=== PATIENT | male | born 1995 | race Caucasian/White ===

== ENCOUNTER 2018-02-26 22:15 | Emergency (ER) | payer SELFPAY ==
[2018-02-26 22:16] VITALS: BP 125/75; PULSE 68; RESP 18; TEMP 36.8; O2SAT 99; BMI 22.1
--- NOTE | 2018-02-26 22:34 | ED.DCSUM_ITS ---
- ER Visit Summary Date of Service: 02/26/18 Chief Complaint: Foreign body sensation right eye History of Present Illness: The patient is a 23 M presenting for foreign body sensation right eye. He states he noticed this around 7 PM this evening. He tried to flush out his eye. He complains of burning sensation in his eye. Denies any visual changes. He wears glasses, does not wear contacts. He was grinding metal with safety goggles on today. Denies other complaints. Physical Examination: Vitals are stable. Patient is afebrile. Alert no acute distress. HEENT exam is right conjunctivae injected with FB visible at 3 o'clock Neck is supple. Lungs are clear and equal bilaterally. Heart is regular rate and rhythm. Skin is warm and dry. Remainder of exam is unremarkable. Emergency Department Course and Treatment: Tetracaine was instilled in right eye. Visual acuity 20/30 OD, 20/30 OS, 20/30 OU. Pain is relieved with tetracaine. Foreign body was mostly removed with cotton tip swab. Further foreign body was removed with eye brayan. There is small residual foreign body. Currently fluorescein is unavailable. He will follow-up with ophthalmology in the morning. He is given bacitracin ophthalmic ointment. Advised return ED if worsening complaints. Disposition: Discharge home Impression: Foreign body right eye This note was generated with [employer] dictation software. It may contain incorrect words, spelling, and punctuation that were not noted in review of the chart prior to signing ED Disposition - Plan for ED Patient: Chief Complaint: Eye Problem Instructions: ED Foreign Body Cornea Referrals: Vahe Salinas [Primary Care Provider] - Michael Ruiz MD [STAFF PHYSICIAN] -
[2018-02-26] MEDS: Tetracaine 0.5% Ophthalmic Bottle 1 DRP EACH EYE (22:43)
--- NOTE | 2018-02-26 22:51 | ED.DEP ---
ED Disposition - Plan for ED Patient: Chief Complaint: Eye Problem Instructions: ED Foreign Body Cornea Referrals: Vahe Salinas [Primary Care Provider] - Michael Ruiz MD [STAFF PHYSICIAN] -
--- NOTE | 2018-02-26 23:09 | NURSING ---
PT INSTRUCTED BY DOCTOR TO PUT ANTIBIOTIC EYE OINTMENT IN EYE TID
[2018-02-26 23:12] VITALS: RESP 18
== END 2018-02-26 23:13 | disposition home or self-care (01) ==
PROVIDERS: Emergency Provider Emergency Medicine; Family Provider Family Medicine; PCP Family Medicine
DX: T15.91XA Foreign body on external eye, part unspecified, right eye, initial encounter (principal); X58.XXXA Exposure to other specified factors, initial encounter; Y93.9 Activity, unspecified; Y92.9 Unspecified place or not applicable; Y99.9 Unspecified external cause status
CPT/HCPCS: 99283

== ENCOUNTER 2018-03-31 11:17 | Emergency (ER) | payer SELFPAY ==
[2018-03-31 11:18] VITALS: BP 123/69; PULSE 65; RESP 17; TEMP 37; O2SAT 99; BMI 23.2
--- NOTE | 2018-03-31 12:15 | CT_ITS ---
STUDY: CT ABDOMEN AND PELVIS WITHOUT CONTRAST REASON FOR EXAM: Male, 23 years old. Abdominal pain after eating, diarrhea RADIATION DOSAGE (If Supplied By Facility): CTDIvol = ( 6.24 ) mGy, DLP = ( 311.88 ) mGycm TECHNIQUE: Transaxial images were obtained from the dome of the diaphragm to the symphysis pubis without oral contrast, and without intravenous contrast. Sagittal and coronal images were reconstructed. Individualized dose optimization techniques were used for this CT. COMPARISON: None. FINDINGS: The visualized lung bases are unremarkable. The visualized portions of the heart are within normal limits. Normal liver. Normal gallbladder and extrahepatic biliary system. Normal spleen. Normal pancreas. Normal bilateral adrenal glands. Normal right kidney. Normal left kidney. Normal visualized stomach. Normal small intestine. Normal colon. There is non-visualization of the appendix. Normal abdominal aorta. Normal inferior vena cava. Normal retroperitoneum. Normal urinary bladder. Normal abdominal wall. Normal osseous structures. CT/Abdomen/Pelvis without Cont IMPRESSION: No evidence of acute intestinal pathology or acute obstructive uropathy. No CT evidence of acute abdominopelvic pathology. Electronically Signed: Jair Carmona MD at 12:53 EDT Tel , Service support ,
[2018-03-31] MEDS: morphine 8 MG/ML Syringe IV (12:19)
[2018-03-31] MEDS: 0.9% Normal Saline 1,000 ML 1000 ML IV (12:19)
[2018-03-31 12:21] LABS: Absolute Lymphocyte Count 1.32 X10^3/ul (0.83-4.51); Absolute Neutrophil Count 3.6 X10^3/uL (2.0-7.7); Basophil# 0.02 X10^3/uL; Basophil% 0.4 % (0-1); Eosinophil# 0.16 X10^3/uL; Eosinophils% 2.9 % (0-5); Hematocrit 41.9 % (40-54); Hemoglobin 14.6 g/dl (13.0-16.5); Lymphocyte # 1.32 X10^3/ul (4.0); Lymphocyte % 24.2 % (19-41); Mean Corp Hgb Conc 34.8 g/gl (32-36); Mean Corpuscular Hgb 29.8 pg (27.0-32.0); Mean Corpuscular Volume 85.5 fL (80-94); Mean Platelet Vol. 10.2 fl (6.2-12.0); Monocyte% 7.3 % (0-10); Neutrophil # 3.55 X10^3/uL (2.7-7.7); Platelet Count 229 K/mm3 (150-450); RBC Distribution Width CV 12.1 % (11.6-14.6); RBC Distribution Width SD 37.3 fl (35.1-43.9); White Blood Count 5.5 K/mm3 (4.4-11.0)
[2018-03-31] MEDS: Ondansetron 4 MG/2 ML Vial IV (12:21)
[2018-03-31 12:22] LABS: POSITIVE COUNT NO; POSITIVE DIFFERENTIAL NO; POSITIVE MORPHOLOGY NO
--- NOTE | 2018-03-31 12:23 | ED.DCSUM_ITS ---
- ER Visit Summary Date of Service: 03/31/18 Chief Complaint: [] Abdominal pain and diarrhea for about 2 weeks history of ulcerative colitis as a child History of Present Illness: The patient is a 23 M [] no symptoms for 2 weeks he states had copious diarrhea, no vomiting but increasing symptoms when he eats, no fever no cough no history of exposures to tainted food or sick individuals, He has history of appendectomy as a youth, he was diagnosed ulcerative colitis as a youth, he was placed on medications he improved and is not taking any medications or seen anyone for any type of GI ailment for many years. He simply complains of low crampy right and left side abdominal discomfort and copious diarrhea his symptoms persisted he came in for evaluation works with [employer] and was not exposed anything that could have made him ill Physical Examination: [] His vital signs are within normal range head neck chest unremarkable the abdomen is soft there is no specific discomfort subjectively complains of pain to the right suprapubic and left lower abdomen however the palpation reveals no rebound guarding organomegaly the backs unremarkable upper lower extremities are normal the skin is normal neurologically he is awake moving all 4 Test Results: [] Emergency Department Course and Treatment: [] Than that history screening labs IV fluids CT abdomen Since labs studies and CTs are unremarkable please see all those reports on reevaluation he is resting comforting the bed of explained all the above test results to him and his family, explained that all the above is unclear, explained that it is not clear that this is in fact from the ulcerative colitis is again etiology is unclear, I explained he requires management with primary care possible gastroneurology at this time started on bland diet Bentyl and outpatient follow-up and return for change in symptoms and he understands will follow-up Treatment Plan: [] Disposition: [] Home stable Impression: [] Abdominal pain for weeks etiology unclear history of ulcerative colitis This note was generated with [employer] dictation software. It may contain incorrect words, spelling, and punctuation that were not noted in review of the chart prior to signing ED Disposition - Plan for ED Patient: Chief Complaint: Abd Pain Referrals: Vahe Salinas [Primary Care Provider] -
[2018-03-31 12:47] LABS: AST(SGOT) 22 U/L (15-37); Alanine Aminotransfer ALT/SGPT 27 U/L (16-61); Alkaline Phosphatase 74 U/L (45-117); Anion Gap 4 (5-15); BUN 7 mg/dL (7-18); BUN/Creat Ratio 6.3 RATIO (10-20); Bilirubin, Direct 0.08 mg/dL (0.00-0.30); Calcium,Total 8.6 mg/dL (8.5-10.1); Chloride 107 mmol/L (98-107); Creatinine, Serum 1.11 mg/dL (0.70-1.30); EST Glomerular Filtration Rate 86 mL/min (>60); Est Glom Filt Rate - Afr Amer 104 mL/min (>60); Estimated Creatinine Clearance 101.73 ml/min; Globulin 3.3 g/dL (2.2-4.2); Glucose 78 mg/dL (74-106); Lipase 67 U/L (73-393); Potassium 4.1 mmol/L (3.5-5.1); Protein, Total 7.3 g/dL (6.4-8.2); Sodium Level 140 mmol/L (136-145)
[2018-03-31 12:58] LABS: Bacteria 0 SEEN /hpf (None Seen); Mucous, Urine 0 SEEN /hpf (<or=2+); Red Blood Cells-Urine 0 SEEN /hpf (0-5); Squamous Epithelial Cells - UA 0 SEEN /hpf (0-5); White Blood Cells 0 SEEN /hpf (0-5)
[2018-03-31 13:11] LABS: Color, Urine Yellow (Yellow); Glucose, Dipstick Normal (Normal); Ketone-Dipstick Negative (Negative); Leukocyte Esterase-Dipstick Negative /ul (Negative); Nitrite-Dipstick Negative (Negative); Occult Blood-Urine Negative /ul (Negative); Protein-Dipstick Negative (Negative); Specific Gravity, Urine 1.015 (1.002-1.030); Urine Bilirubin Dipstick Negative (Negative); Urine Clarity Clear (Clear); Urine Urobilinogen Normal (Normal)
--- NOTE | 2018-03-31 14:09 | ED.DEP ---
ED Disposition - Plan for ED Patient: Chief Complaint: Abd Pain Instructions: ED Abdominal Pain Unkn Cause Prescriptions: Dicyclomine HCl [Bentyl] 20 mg PO TIDAC #20 cap Referrals: Vahe Salinas [Primary Care Provider] - Cuba Banks MD [STAFF PHYSICIAN] -
== END 2018-03-31 14:31 | disposition home or self-care (01) ==
LOC: ED 12:19
PROVIDERS: Emergency Provider Emergency Medicine; Family Provider Family Medicine; PCP Family Medicine
DX: R10.9 Unspecified abdominal pain (principal); R19.7 Diarrhea, unspecified; Z87.19 Personal history of other diseases of the digestive system
CPT/HCPCS: 74176; 80048; 80076; 81001; 83690; 85025; 96361; 96374; 96375; 99284; J7030; A4216; J2405

== ENCOUNTER 2018-08-21 18:36 | Emergency (ER) | payer OTHER, SELFPAY ==
[2018-08-21 18:37] VITALS: BP 130/69; PULSE 77; RESP 16; TEMP 35.9; BMI 22.8
--- NOTE | 2018-08-21 19:02 | RAD_ITS ---
STUDY: X-RAY - LEFT RADIUS AND ULNA REASON FOR EXAM: Male, 23 years old. Trauma TECHNIQUE: 2 view(s) of the forearm. COMPARISON: None. FINDINGS: There is no demonstrated soft tissue swelling. There is a partially threaded screw coursing the medial humeral epicondyle Normal visualized radius. Normal visualized ulna. RAD/Forearm 2 Views IMPRESSION: No evidence for acute fracture or dislocation. Electronically Signed: David Geiger MD at 20:27 EST , Service support ,
--- NOTE | 2018-08-21 19:17 | ED.VISSUMM ---
- ER Visit Summary Date of Service: 08/21/18 Chief Complaint: [Left arm injury] History of Present Illness: The patient is a 23 M [presents to the emergency department complaint of injury to his left forearm. Patient states that while at work 2 days ago he was cleaning out a cylinder while holding onto the cylinder with his left arm which required significant amount of pressure. Patient states that he went home that day and had a lot of discomfort in the dorsum of his forearm. Today while at work he developed increasing pain and burning sensation with numbness to his thumb. Patient noticed that there is a swelling to the dorsum of the forearm that is very painful.] Physical Examination: [Left arm-patient has a soft tissue swelling to the dorsum of the forearm distal third that is tender to palpation. Patient has the ability to extend all digits without difficulty. He is neurovascularly intact distally. No discoloration noted to the skin. There is no erythema or warmth.] Test Results: [X-rays of the left forearm showed no fractures or dislocations] Emergency Department Course and Treatment: [Patient had an Chai wrap given] Treatment Plan: [Patient will be referred to orthopedics and given work restrictions] Disposition: [Discharged home in stable condition] Impression: [Left forearm strain] This note was generated with [employer] dictation software. It may contain incorrect words, spelling, and punctuation that were not noted in review of the chart prior to signing ED Disposition - Plan for ED Patient: Chief Complaint: Upper Extremity Injury Referrals: Vahe Salinas [Primary Care Provider] -
--- NOTE | 2018-08-21 20:34 | ED.DEP ---
ED Disposition - Plan for ED Patient: Chief Complaint: Upper Extremity Injury Instructions: ED Strain Muscle Ext Referrals: Vahe Salinas [Primary Care Provider] - Amy Ceballos DO [STAFF PHYSICIAN] - 3-5 Days
[2018-08-21 20:53] VITALS: RESP 18; O2SAT 100
== END 2018-08-21 20:55 | disposition home or self-care (01) ==
LOC: ED 19:31
PROVIDERS: Emergency Provider Emergency Medicine; Family Provider Family Medicine; PCP Family Medicine
DX: S56.912A Strain of unspecified muscles, fascia and tendons at forearm level, left arm, initial encounter (principal); R20.0 Anesthesia of skin; X50.9XXA Other and unspecified overexertion or strenuous movements or postures, initial encounter; Y93.89 Activity, other specified; Y92.89 Other specified places as the place of occurrence of the external cause; Y99.0 Civilian activity done for income or pay; F17.220 Nicotine dependence, chewing tobacco, uncomplicated
CPT/HCPCS: 73090; 99284

== ENCOUNTER → 2023-04-27 | Outpatient (CLI) | payer OTHER, SELFPAY ==
[2023-04-27 17:16] LABS: Absolute Lymphocyte Count 1.86 X10^3/uL (0.83-4.51); Absolute Neutrophil Count 4.1 X10^3/uL (2.0-7.7); Basophil# 0.04 X10^3/uL; Basophil% 0.6 % (0-1); Eosinophil# 0.24 X10^3/uL; Eosinophils% 3.6 % (0-5); Hemoglobin 14.5 g/dL (13.0-16.5); Lymphocyte # 1.86 X10^3/ul (0.83-4.51); Lymphocyte % 27.9 % (19-41); Mean Corp Hgb Conc 33.7 g/dL (32-36); Mean Corpuscular Hgb 29.5 pg (27.0-32.0); Mean Corpuscular Volume 87.4 fL (80-94); Mean Platelet Vol. 9.9 fl (6.2-12.0); Monocyte# 0.38 X10^3/uL; Monocyte% 5.7 % (0-10); NRBC Flagged by Analyzer 0 % (0-5); Neutrophil # 4.14 X10^3/uL (2.7-7.7); Neutrophil % 62.1 % (47-70); Platelet Count 259 K/mm3 (150-450); RBC Distribution Width CV 12.1 % (11.6-14.6); RET-HE 32.8 pg (30-35); Red Blood Count 4.92 M/mm3 (4.6-6.2); Reticulocyte Count 1.42 % (0.5-1.5); White Blood Count 6.7 K/mm3 (4.4-11.0)
[2023-04-27 17:32] LABS: Erythrocyte Sedimentation Rate 1 mm/hr (0-20)
[2023-04-27 18:21] LABS: ALB/GLOB Ratio 1.3 RATIO (0.9-2.4); AST(SGOT) 20 U/L (15-37); Alanine Aminotransfer ALT/SGPT 26 U/L (16-61); Albumin, Serum 4.1 g/dL (3.2-5.0); Alkaline Phosphatase 75 U/L (45-117); Amylase 56 U/L (25-115); Anion Gap 6 (5-15); BUN 16 mg/dL (7-18); BUN/Creat Ratio 16.3 RATIO (10-20); CRP < 2.90 mg/L (0.0-3.0); Calcium,Total 8.9 mg/dL (8.5-10.1); Chloride 106 mmol/L (98-107); Creatinine, Serum 0.98 mg/dL (0.70-1.30); EST Glomerular Filtration Rate 95 mL/min (>60); Est Glom Filt Rate - Afr Amer 115 mL/min (>60); Ferritin 119 ng/mL (26-388); Globulin 3.2 g/dL (2.2-4.2); Glucose 62 mg/dL (74-106); Iron 112 ug/dL (65-175); Iron Binding Capacity,Total 344 ug/dL (250-450); LDH 162 U/L (87-241); Lipase 28 U/L (13-75); Potassium 3.4 mmol/L (3.5-5.1); Protein, Total 7.3 g/dL (6.4-8.2); Sodium Level 142 mmol/L (136-145); T4 Free Direct 0.86 ng/dL (0.76-1.46); Thyroid Stim Hormone (TSH) 0.72 uIU/mL (0.358-3.74)
[2023-04-27 18:34] LABS: Vitamin B12 321 pg/mL (211-911)
[2023-05-02 14:15] LABS: Albumin 4.1 g/dL (2.9-4.4); Alpha-1-Globulins 0.2 g/dL (0.0-0.4); Alpha-2-Globulins 0.6 g/dL (0.4-1.0); Cytoplasmic Ab (C-ANCA) <1:20 titer (Neg:<1:20); Endomysial Antibody IgA Negative (Negative); Gamma Globulin 0.9 g/dL (0.4-1.8); Immunoglobulin A 140 mg/dL (90-386); Immunoglobulin E 64 IU/mL (6-495); Immunoglobulin G 991 mg/dL (603-1613); Immunoglobulin M 59 mg/dL (20-172); PROEL- TOTAL PROTEIN 6.8 g/dL (6.0-8.5); Perinuclear Ab (P-ANCA) <1:20 titer (Neg:<1:20); t-Transglutaminase IgA <2 U/mL (0-3)
[2023-05-03 00:07] LABS: Anti-Centromere B Ab <0.2 AI (0.0-0.9); Anti-Chromatin <0.2 AI (0.0-0.9); Anti-Jo <0.2 AI (0.0-0.9); Anti-Scleroderma-70 AB <0.2 AI (0.0-0.9); Anti-dsDNA Ab 1 IU/mL (0-9); Beef <0.10 kU/L (Class 0); Chocolate <0.10 kU/L (Class 0); Clam <0.10 kU/L (Class 0); Codfish <0.10 kU/L (Class 0); Corn <0.10 kU/L (Class 0); Egg, White <0.10 kU/L (Class 0); Egg, Whole <0.10 kU/L (Class 0); Milk (Cow) <0.10 kU/L (Class 0); Peanut 0.14 kU/L (Class 0/I); Pork <0.10 kU/L (Class 0); RNP Ab <0.2 AI (0.0-0.9); SCALLOP <0.10 kU/L (Class 0); SESAME SEED <0.10 kU/L (Class 0); SJOGREN'S Anti-SS-A test < 0.2 AI (0.0-0.9); SJOGREN'S Anti-SS-B test < 0.2 AI (0.0-0.9); Shrimp <0.10 kU/L (Class 0); Smith Ab <0.2 AI (0.0-0.9); Soybean <0.10 kU/L (Class 0); Walnut, (Food) <0.10 kU/L (Class 0); Wheat <0.10 kU/L (Class 0)
== END | disposition home or self-care (01) ==
PROVIDERS: PCP Family Medicine; Referring Provider Internal Medicine Gastroenterology; Visit Provider Internal Medicine Gastroenterology
DX: K51.90 Ulcerative colitis, unspecified, without complications (principal)
CPT/HCPCS: 36415; 80053; 82150; 82607; 82652; 82728; 82746; 82784; 82785; 83516; 83540; 83550; 83615; 83690; 84165; 84439; 84443; 84481; 85025; 85045; 85652; 86003; 86005; 86140; 86225; 86235; 86255; 86256; 86334

== ENCOUNTER → 2023-06-05 | Outpatient (CLI) | payer OTHER, SELFPAY ==
--- NOTE | 2023-06-05 11:41 | MRI_ITS ---
STUDY: MRI ABDOMEN AND PELVIS WITH AND WITHOUT CONTRAST (MR enterography) REASON FOR EXAM: Male, 28 years old. K51.90 - Ulcerative colitis, unspecified, without complications TECHNIQUE: Standardized fat and water weighted pulse sequences were obtained in all 3 orthogonal planes post contrast administration.IV 15ml clariscan was administered for the contrast portion of the examination. Oral contrast opacification of the bowel loops. COMPARISON: CT of abdomen and pelvis dated March 31, 2018 FINDINGS: The visualized lung bases are unremarkable. The visualized portions of the heart are within normal limits. Normal liver. Normal gallbladder and extrahepatic biliary system. Normal spleen. Normal pancreas. Normal bilateral adrenal glands. Normal right kidney. Normal left kidney. Enterography: The bowel loops are opacified with contrast and reveal no focal narrowing or dilatation or wall thickening. No skip lesions or strictures are present. No demonstrated abnormal adhesion between the bowel loop murray. No visualized intraluminal masses. Normal visualized stomach. Normal small intestine. Only the base of the cecum is opacified with oral contrast, the remaining colonic loops are nonopacified. Grossly unremarkable colonic loops, however correlation with CT with oral contrast is recommended. No ascites is present. No visualized encapsulated fluid collections. There is non-visualization of the appendix. Normal abdominal aorta. Normal inferior vena cava. Normal retroperitoneum. Normal urinary bladder. Normal abdominal wall. Normal osseous structures. MRI/Enterography Abd/Pel IMPRESSION: 1. Negative unenhanced and enhanced MRI of the abdomen and pelvis. 2. Only the base of the cecum is opacified with oral contrast, the remaining colonic loops are nonopacified. Grossly unremarkable colonic loops, however correlation with CT with oral contrast is recommended. No ascites is present. No visualized encapsulated fluid collections. Electronically Signed: Román Mayers MD at 9:02 EDT ,
--- NOTE | 2023-06-05 12:00 | RAD_ITS ---
HISTORY: HX METAL TO EYE, PRE MRI. TECHNIQUE: XR Orbits Clearance FB. COMPARISON: None. FINDINGS: BONES : Symmetric appearance. Metallic dental amalgam noted. SOFT TISSUES: No significant air fluid levels in the paranasal sinuses. No metallic foreign body identified in the orbits. RAD/Orbits for Foreign Body IMPRESSION: No metallic foreign body identified in the orbits. Electronically Signed: Ana Garcia MD at 12:41 EDT ,
[2023-06-05 12:15] VITALS: BP 123/82; PULSE 59; RESP 16; O2SAT 99
[2023-06-05 12:18] VITALS: BP 123/82; PULSE 62; RESP 18; TEMP 36.4; O2SAT 99; BMI 23.6
[2023-06-05] MEDS: Glucagon 1 MG/ML Syringe IV (13:30)
[2023-06-05 13:51] VITALS: BP 131/77; PULSE 58; RESP 16; O2SAT 99
== END | disposition home or self-care (01) ==
LOC: MRI 11:39
PROVIDERS: PCP Family Medicine; Referring Provider Internal Medicine Gastroenterology; Visit Provider Internal Medicine Gastroenterology
DX: K51.90 Ulcerative colitis, unspecified, without complications (principal)
CPT/HCPCS: 70030; 74183; 96374; A9575; A4216; J1610